=== PATIENT | male | born 1960 | race Caucasian/White ===

== ENCOUNTER 2021-03-02 11:54 | Emergency (ER) | payer OTHER ==
[2021-03-02 13:15] LABS: HEMOGLOBIN 9.8 gm/dl (14.0-17.5); RED BLOOD COUNT 4.22 M/UL (4.20-5.50)
[2021-03-02 13:55] LABS: BUN/CREATININE RATIO 14 (0-10)
== END 2021-03-02 16:45 | disposition home or self-care (01) ==
LOC: ER1 11:54
PROVIDERS: Physician Assistant
DX: F10.129 Alcohol abuse with intoxication, unspecified (principal); I10 Essential (primary) hypertension
CPT/HCPCS: 80053; 85025; 99284; G0480